=== PATIENT | male | born 1955 ===

== ENCOUNTER 2021-03-31 10:52 | Outpatient (CLI) | payer OTHER | END 2021-03-31 23:59 | disposition home or self-care (01) | LOC: CFH 10:52 | PROVIDERS: ATTEND Student in an Organized Health Care Education/Training Program | DX: Z12.2 Encounter for screening for malignant neoplasm of respiratory organs (principal); J98.4 Other disorders of lung; I70.0 Atherosclerosis of aorta; M51.34 Other intervertebral disc degeneration, thoracic region; M43.8X5 Other specified deforming dorsopathies, thoracolumbar region; Z87.891 Personal history of nicotine dependence | CPT/HCPCS: 71271 ==